=== PATIENT | female | born 1970 | race African-American/Black ===

== ENCOUNTER 2017-01-01 15:57 | Emergency (ER) | payer SELFPAY ==
[2017-01-01 16:07] VITALS: TEMP 98.7; BMI 31.0
--- NOTE | 2017-01-01 17:15 | PDOC ---
Attending Attestation - Resident Resident Name: Lavlele Ramirez - HPI HPI: 01/01/17 17:07 46 yo Bahraini speaking female from [facility] presents with several concerns. She states she has not seen a physician for these complaints -she has had intermittent vertigo for which she takes amoxicillin -she has c/o dysuria -she has RUQ pain -headaches 01/01/17 17:25 - Physicial Exam PE: 01/01/17 17:15 overweight 46 yo female in no acute distress presents to ER HEENT- eyes hermila ,eomi,throat no exudates,neck no jvd,no bruits lungs cta b/l cvr [id number] abd soft,nontender ext no deformities neuro ambulatory w/o assistance,axo x 3, motor strength 5/5 - Medical Decision Making 01/02/17 00:00 ct scan head negative for any acute pathology/labs reviewed/ US abd done.
[2017-01-01 17:16] LABS: MCH 22.2 pg (25.7-33.7); MEAN CELL VOLUME 71.6 fl (80-96); MEAN PLT VOLUME 6.8 fl (7.5-11.1); PLATELET COUNT 445 K/MM3 (134-434); RDW 16.8 % (11.6-15.6); WHITE BLOOD COUNT 6.9 K/mm3 (4.0-10.0)
[2017-01-01 17:28] LABS: INR 1.04 (0.82-1.09); PROTHROMBIN TIME (PATIENT) 11.5 SEC (9.98-11.88)
[2017-01-01 17:31] LABS: ACTIVATED PTT 27.2 SECONDS (26.9-34.4)
[2017-01-01 17:34] LABS: URINE APPEARANCE CLEAR; URINE BILIRUBIN NEGATIVE (NEGATIVE); URINE BLOOD 1+ (NEGATIVE); URINE COLOR COLORLESS; URINE GLUCOSE (UA) NEGATIVE (NEGATIVE); URINE KETONE NEGATIVE (NEGATIVE); URINE LEUK ESTERASE NEGATIVE (NEGATIVE); URINE NITRITE NEGATIVE (NEGATIVE); URINE PROTEIN NEGATIVE (NEGATIVE); URINE UROBILINOGEN NEGATIVE mg/dL (0.2-1.0)
[2017-01-01 17:36] LABS: ALBUMIN 3.9 g/dl (3.4-5.0); BILIRUBIN,DIRECT 0.1 mg/dL (0.0-0.2); BILIRUBIN,TOTAL 0.3 mg/dL (0.2-1.0); SGOT/AST 18 U/L (15-37); SGPT/ALT 19 U/L (12-78); TOT PROT 8.1 g/dl (6.4-8.2)
[2017-01-01 17:38] LABS: ALK PHOS 60 U/L (45-117); CPK 175 IU/L (26-192); TROPONIN I < 0.02 ng/ml (0.00-0.05)
--- NOTE | 2017-01-01 17:42 | PDOC ---
History of Present Illness - General Chief Complaint: Pain Stated Complaint: HEADACHES, NAUSEA Time Seen by Provider: 01/01/17 16:29 History Source: Patient Exam Limitations: No Limitations - History of Present Illness Initial Comments: 01/01/17 18:29 Patient doesn't speak Eritrean. Patient interview conducted in Maldivian in this physician's blackfeet language. 46F from [place] (moved last year) and no pmh, never saw a doctor for anything except for 2 c-sections, "whenever I fell sick, I take an amoxicillin, I always get better" present for evaluation of chronic episodes of vertigo "berrios spinning" with nausea lasting less than a minute, and in particular this afternoon at 2pm when she felt that she almost fell down. She also complains of abdominal pain. 01/01/17 18:46 Past History - Past Medical History Allergies/Adverse Reactions: Allergies Allergy/AdvReac Type Severity Reaction Status Date / Time No Known Allergies Allergy Verified 01/01/17 16:07 Home Medications: Ambulatory Orders NK [No Known Home Medication] 01/01/17 Other medical history: DENIES - Psycho/Social/Smoking Cessation Hx Suicidal Ideation: No Smoking History: Never smoked Hx Alcohol Use: No Drug/Substance Use Hx: No Substance Use Type: None *Physical Exam - Vital Signs Last Vital Signs Temp Pulse Resp BP Pulse Ox 98.7 F 109 H 20 151/99 99 01/01/17 16:02 01/01/17 16:02 01/01/17 16:02 01/01/17 16:02 01/01/17 16:02 - Physical Exam General Appearance: Yes: Nourished, Appropriately Dressed. No: Apparent Distress HEENT: positive: EOMI, NORMA, Normal ENT Inspection, Normal Voice Neck: positive: Normal Thyroid. negative: Tender Respiratory/Chest: positive: Lungs Clear, Normal Breath Sounds. negative: Chest Tender, Respiratory Distress Cardiovascular: positive: Regular Rhythm, Regular Rate, S1, S2. negative: Edema , Bradycardia, Tachycardia Vascular Pulses: Carotid (R): 2+, Carotid (L): 2+, Dorsalis-Pedis (R): 2+, Doralis-Pedis (L): 2+ Gastrointestinal/Abdominal: positive: Normal Bowel Sounds, Flat, Soft, Rebound, Tenderness (in epigastric and RUQ area) Extremity: positive: Normal Capillary Refill ED Treatment Course - LABORATORY CBC & Chemistry Diagram: 01/01/17 17:06 01/01/17 17:06 Medical Decision Making - Medical Decision Making 01/01/17 18:51 47F presents for chronic vertigo and upper abdominal pain. cbc shows slight microcytic anemia, slight hyperglycemia normal EKG, cardiac panel, Gallbaldder u/s pending d/c if negative 01/01/17 19:06 Patient is signed out to Taylor WinstonDC/Admit/Observation/Transfer Diagnosis at time of Disposition: Benign paroxysmal positional vertigo - Patient Instructions Print Language: UZBEK
[2017-01-01 17:46] LABS: HYPOCHROMIA 1+; OVALOCYTES FEW; PLATELET ESTIMATE INCREASED (NORMAL)
[2017-01-01 17:49] VITALS: BP 120/70; PULSE 81
[2017-01-01 17:52] LABS: ALBUMIN 3.9 g/dl (3.4-5.0); ANION GAP 7 (8-16); BILIRUBIN,TOTAL 0.3 mg/dL (0.2-1.0); CALCIUM 9.2 mg/dL (8.5-10.1); CO2 27 mmol/L (21-32); CREATININE 0.8 mg/dL (0.55-1.02); GLUCOSE,RANDOM 115 mg/dL (74-106); SGOT/AST 17 U/L (15-37); SGPT/ALT 20 U/L (12-78); TOT PROT 8.1 g/dl (6.4-8.2)
[2017-01-01 18:01] LABS: ALK PHOS 60 U/L (45-117); THYROID STIMULATING HORMONE 0.88 uIU/ml (0.358-3.74)
--- NOTE | 2017-01-01 19:58 | PDOC ---
*Physical Exam - Vital Signs Last Vital Signs Temp Pulse Resp BP Pulse Ox 98.7 F 81 17 120/70 98 01/01/17 16:02 01/01/17 17:47 01/01/17 17:47 01/01/17 17:47 01/01/17 17:47 - Physical Exam Comments: 01/01/17 19:56 GENERAL: Awake, alert, and fully oriented, in no acute distress. Eating comfortably HEAD: No signs of trauma, normocephalic, atraumatic ENT: Auricles normal inspection, hearing grossly normal, nares patent, moist mucosa LUNGS: No distress, speaks full sentences, clear to auscultation bilaterally HEART: Regular rate and rhythm, normal S1 and S2, no murmurs, rubs or gallops, peripheral pulses normal and equal bilaterally. ABDOMEN: Minimally tender to palpation, normoactive bowel sounds. No guarding, no rebound. No masses NEUROLOGICAL: Cranial nerves II through XII grossly intact. Normal speech, no focal sensorimotor deficits SKIN: Warm, Dry, normal turgor, no rashes or lesions noted. ED Treatment Course - LABORATORY CBC & Chemistry Diagram: 01/01/17 17:06 01/01/17 17:06 - ADDITIONAL ORDERS Additional order review: Laboratory Results 01/01/17 01/01/17 01/01/17 17:06 17:06 17:06 INR 1.04 PTT (Actin FS) 27.2 Sodium 139 Potassium 3.9 Chloride 105 Carbon Dioxide 27 Anion Gap 7 L BUN 5 L Creatinine 0.8 Creat Clearance w eGFR > 60 Random Glucose 115 H Calcium 9.2 Total Bilirubin 0.3 0.3 Direct Bilirubin 0.1 AST 18 17 ALT 19 20 Alkaline Phosphatase 60 60 Creatine Kinase 175 Troponin I < 0.02 Total Protein 8.1 8.1 Albumin 3.9 3.9 TSH 0.88 Urine Color Urine Appearance Urine pH Urine Protein Urine Glucose (UA) Urine Ketones Urine Blood Urine Nitrite Urine Bilirubin Urine Urobilinogen Ur Leukocyte Esterase Urine RBC Urine WBC Ur Epithelial Cells Urine HCG, Qual 01/01/17 17:06 INR PTT (Actin FS) Sodium Potassium Chloride Carbon Dioxide Anion Gap BUN Creatinine Creat Clearance w eGFR Random Glucose Calcium Total Bilirubin Direct Bilirubin AST ALT Alkaline Phosphatase Creatine Kinase Troponin I Total Protein Albumin TSH Urine Color Colorless Urine Appearance Clear Urine pH 7.0 Urine Protein Negative Urine Glucose (UA) Negative Urine Ketones Negative Urine Blood 1+ H Urine Nitrite Negative Urine Bilirubin Negative Urine Urobilinogen Negative Ur Leukocyte Esterase Negative Urine RBC None Urine WBC None Ur Epithelial Cells Rare Urine HCG, Qual Negative 01/01/17 17:06 RBC 4.29 MCV 71.6 L MCHC 31.0 L RDW 16.8 H MPV 6.8 L Neutrophils % 59.0 Lymphocytes % 29.0 Monocytes % 11.0 H Eosinophils % 1.0 Medical Decision Making - Medical Decision Making 01/01/17 19:[address] Ramirez. Pending ultrasound. Eating comfortably in bed. 01/01/17 20:26 Ultrasound shows an incidental renal cyst and fatty infiltration of liver. Will give medication for a headache, nausea. Will get CT scan. 01/01/17 22:10 CT Head normal. Patient's headache improved after zofran and toradol. *DC/Admit/Observation/Transfer Diagnosis at time of Disposition: BPPV (benign paroxysmal positional vertigo) Qualifiers: Laterality: unspecified laterality Qualified Code(s): H81.10 - Benign paroxysmal vertigo, unspecified ear Abdominal pain Qualifiers: Abdominal location: epigastric Qualified Code(s): R10.13 - Epigastric pain - Discharge Dispostion Disposition: HOME Condition at time of disposition: Good Admit: No - Patient Instructions Printed Discharge Instructions: DI for Abdominal Pain-Adult Print Language: GIBRALTARIAN - Attestations Physician Attestion: 01/01/17 22:12 I, Dr. Barry Tamez, attest that this document has been prepared under my direction and personally reviewed by me in its entirety. I further attest, that it accurately reflects all work, treatment, procedures and medical decision -making performed by me.
[2017-01-01] MEDS ORDERED: IBUPROFEN 600 MG TABLET (FP) PO ONE ×2 (20:28→20:33)
[2017-01-01] MEDS ORDERED: ONDANSETRON 4 MG/2 ML VIAL IVPUSH ONE (20:28)
[2017-01-01] MEDS ORDERED: KETOROLAC TROMETHAMINE 30 MG/1 ML VIAL IVPUSH ONE (20:29)
[2017-01-01] MEDS ORDERED: KETOROLAC TROMETHAMINE 30 MG/1 ML VIAL ONE (20:33)
[2017-01-01] MEDS ORDERED: ONDANSETRON 4 MG/2 ML VIAL ONE (20:34)
--- NOTE | 2017-01-02 09:50 | EKG ---
Test Reason : Blood Pressure : / mmHG Vent. Rate : 071 BPM Atrial Rate : 071 BPM P-R Int : 118 ms QRS Dur : 064 ms QT Int : 380 ms P-R-T Axes : 043 042 025 degrees QTc Int : 412 ms NORMAL SINUS RHYTHM NORMAL ECG NO PREVIOUS ECGS AVAILABLE Confirmed by STACY FRANZ MD ([id number]) on 01/02/2017 9:50:18 AM Referred By: Confirmed By:STACY FRANZ MD
== END 2017-01-01 22:31 | disposition home or self-care (01) ==
LOC: EDBD → JER 15:57
PROC: 3E0333Z Introduction of Anti-inflammatory into Peripheral Vein, Percutaneous Approach (ICD-10-PCS; principal; 2017-01-01)
PROC: 3E033GC Introduction of Other Therapeutic Substance into Peripheral Vein, Percutaneous Approach (ICD-10-PCS; 2017-01-01)
DX: H81.10 Benign paroxysmal vertigo, unspecified ear (principal)
CPT/HCPCS: 36415; 70450-TC; 76705-TC; 80053; 80076; 81003; 81015; 83036; 84443; 84484; 84703; 85025; 85610; 85730; 93005; 93010; 99285-25